=== PATIENT | female | born 2000 | race Caucasian/White ===

== ENCOUNTER 2023-01-23 22:07 | Emergency (ER) | payer OTHER ==
[2023-01-23 22:13] VITALS: RESP 16; TEMP 98.4
[2023-01-23] MEDS ORDERED: ACETAMINOPHEN TAB 500 MG TAB PO STA (22:39)
[2023-01-23] MEDS ORDERED: KETOROLAC 15 MG/ML 1 ML VIAL IM STA (22:39)
[2023-01-23] MEDS ORDERED: ACET/COD 300 MG/30 MG STARTER PACK 6 TAB BTL PO STA (22:57)
--- NOTE | 2023-01-23 22:57 | ED ---
General Adult HPI - General Chief complaint: Extremity Injury, Lower Stated complaint: Right leg injury Time Seen by Provider: 01/23/23 22:30 Source: patient, RN notes reviewed, old records reviewed Mode of arrival: wheelchair Limitations: no limitations - History of Present Illness Initial comments: Patient is a 22-year-old female presents emergency Department complaining of right ankle and leg pain. Patient is a cheerleader, and shorted a landing when she immediately felt something pop in her posterior right ankle. Unable to ambulate afterwards. Has difficulty with plantar flexion. Tingling sensation in her feet. No other injury. Presents for further evaluation this time over concern for Achilles injury. No significant past medical history. Is visiting for a competition with her college and is not from the area. Denies any head. Denies loss of consciousness. Is not on blood thinners. - Related Data Allergies Allergy/AdvReac Type Severity Reaction Status Date / Time No Known Allergies Allergy Verified 01/23/23 22:13 Review of Systems ROS Statement: Those systems with pertinent positive or pertinent negative responses have been documented in the HPI. Review of Systems: CONST: Denies fever EYES: Denies blurry vision ENT: Denies nasal congestion C/V: Denies Chest pain RESP: Denies shortness of breath GI: Denies abdominal pain : Denies dysuria SKIN: Denies rash. MSK: Endorses right posterior ankle pain. NEURO: Denies headache ROS Other: All systems not noted in ROS Statement are negative. Past Medical History Past Medical History: No Reported History Past Surgical History: No Surgical Hx Reported Past Psychological History: No Psychological Hx Reported Smoking Status: Never smoker Past Alcohol Use History: None Reported Past Drug Use History: None Reported General Exam - General Exam Comments Initial Comments: General: Appears in no acute distress. HEAD: Normal with no signs of head trauma. EYES: EOMI. ENT: Hearing grossly intact. RESPIRATORY: No respiratory distress. C/V: Regular rate and rhythm. ABD: Abdomen is nondistended. EXT: No obvious deformity. Tenderness to palpation over the posterior right ankle along the Achilles tendon. Gustafson's test positive. Poor plantar flexion. Intact dorsiflexion. Neurovascular intact. Peripheral pulses 2+ and intact throughout. No other obvious injury. No malleoli tenderness. No foot tenderness. No tib-fib tenderness. SKIN: No rashes or lesions observed on exposed skin. NEURO: Alert and oriented. Limitations: no limitations Course Vital Signs 01/23/23 01/23/23 22:10 23:24 Temperature 98.4 F Pulse Rate 75 60 Respiratory 16 16 Rate Blood Pressure 118/73 93/53 O2 Sat by Pulse 98 96 Oximetry Procedures - Orthopedic Splinting/Casting Injury #1 Side: right Lower Extremity Injury Location: short leg Lower Extremity Immobilizer: posterior splint Other Orthopedic Equipment: crutches Additional Comments: Neurovascularly intact following splinting Medical Decision Making - Medical Decision Making Was pt. sent in by a medical professional or institution (, PA, BUSINESS CONTINUITY MANAGEMENT DIRECTOR, urgent care, hospital, or [facility]...) When possible be specific @ -No Did you speak to anyone other than the patient for history (EMS, parent, family, police, friend...)? What history was obtained from this source @ -No Did you review nursing and triage notes (agree or disagree)? Why? @ -I reviewed and agree with nursing and triage notes Were old charts reviewed (outside hosp., previous admission, EMS record, old EKG, old radiological studies, urgent care reports/EKG's, [facility] records)? Report findings @ -No old charts were reviewed Differential Diagnosis (chest pain, altered mental status, abdominal pain women, abdominal pain men, vaginal bleeding, weakness, fever, dyspnea, syncope, headache, dizziness, GI bleed, back pain, seizure, CVA, palpatations, mental health, musculoskeletal)? @ -Achilles tendon injury, Achilles tendon strain, Achilles tendon rupture, ankle fracture EKG interpreted by me (3pts min.). @ -None done X-rays interpreted by me (1pt min.). @ -Right ankle x-ray negative for any obvious bony traumatic injury.Patient does have posterior distal tibial swelling in the area of the Achilles tendon suggestive of injury and rupture. Radiology does see a old avulsion fracture of the fibula as well. CT interpreted by me (1pt min.). @ -None done U/S interpreted by me (1pt. min.). @ -None done What testing was considered but not performed or refused? (CT, X-rays, U/S, labs)? Why? @ -Considered ultrasound imaging however we do not have the capabilities to perform due to soft tissue ultrasound diagnosing Achilles tendon rupture. What meds were considered but not given or refused? Why? @ -None Did you discuss the management of the patient with other professionals (professionals i.e. , PA, BUSINESS CONTINUITY MANAGEMENT DIRECTOR, lab, RT, psych nurse, social work coordinator, spray machine loader, teacher, driver license reviewing officer, case management coordinator)? Give summary @ -No Was smoking cessation discussed for >3mins.? @ -No Was critical care preformed (if so, how long)? @ -No Were there social determinants of health that impacted care today? How? (Homelessness, low income, unemployed, alcoholism, drug addiction, transportation, low edu. Level, literacy, decrease access to med. care, group home, rehab)? @ -No Was there de-escalation of care discussed even if they declined (Discuss DNR or withdrawal of care, Hospice)? DNR status @ -No What co-morbidities impacted this encounter? (DM, HTN, Smoking, COPD, CAD, Cancer, CVA, ARF, Chemo, Hep., AIDS, mental health diagnosis, sleep apnea, morbid obesity)? @ -None Was patient admitted / discharged? Hospital course, mention meds given and route, prescriptions, significant lab abnormalities, going to OR and other pertinent info. @ -Based on the patient's presentation and physical exam, I am concerned for Achilles tendon injury. We will obtain an ankle x-ray to evaluate for any obvious bony traumatic injury however with the concern for Achilles tendon ruptu re she will be placed in a splint in plantar flexion and given crutches with follow-up. She expressed understanding was in agreement this plan. She'll remain nonweightbearing. Patient tolerated splinting well. Neurovascularly intact afterwards. X-ray shows no obvious acute bony traumatic injury. There is soft tissue swelling in the area of the Achilles tendon suggestive of Achilles tendon rupture. We discussed her likely diagnosis of Achilles tendon rupture versus sprain. Strict return precautions discussed. Patient was in agreement this plan. She'll be given a starter pack of Tylenol 3. I instructed the patient to follow up with their PCP in the next 1-3 days. I provided contact information for follow up with orthopedics. I explained that the patient should return to the emergency department if they experience any worsening symptoms. Strict return precautions were discussed with the patient. The patient expressed understanding of these instructions. I answered all questions that the patient had. The patient was discharged home in fair condition with their prescriptions and follow up information. Undiagnosed new problem with uncertain prognosis? @ -No Drug Therapy requiring intensive monitoring for toxicity (Heparin, Nitro, Insulin, Cardizem)? @ -No Were any procedures done? @ -Splinting Diagnosis/symptom? @ -Right Achilles tendon injury Acute, or Chronic, or Acute on Chronic? @ -Acute Uncomplicated (without systemic symptoms) or Complicated (systemic symptoms)? @ -complicated Side effects of treatment? @ -No Exacerbation, Progression, or Severe Exacerbation? @ -No Poses a threat to life or bodily function? How? (Chest pain, [place], [place], pneumonia, PE, COPD, DKA, ARF, appy, cholecystitis, CVA, Diverticulitis, Homicidal, Suicidal, threat to staff... and all critical care pts) @ -No Disposition Clinical Impression: Achilles tendon injury Disposition: HOME SELF-CARE Condition: Fair Instructions (If sedation given, give patient instructions): Achilles Tendon Rupture (ED) Is patient prescribed a controlled substance at d/c from ED?: No Referrals: None,Stated [Primary Care Provider] - 1-2 days Alber Meyers MD [Medical Doctor] - 1-2 days Time of Disposition: 23:30
[2023-01-23 23:27] VITALS: BP 93/53; PULSE 60
--- NOTE | 2023-01-24 00:22 | XR ---
EXAM: XR Right Ankle Complete, 3 or More Views CLINICAL HISTORY: posterior ankle/foot/achilles pain TECHNIQUE: Frontal, lateral and oblique views of the right ankle. COMPARISON: No relevant prior studies available. FINDINGS: Bones/joints: Corticated appearing likely old avulsion fracture inferior aspect of the distal fibula. No acute fracture. No dislocation. Soft tissues: Small amount of soft tissue swelling posterior aspect of the distal tibia region of the Achilles tendon. IMPRESSION: Soft tissue swelling posterior aspect of the distal tibia in the region of the Achilles tendons possibly an injury. Recommend correlate of studies such as MRI if clinically indicated. Likely old avulsion fracture the distal fibula.
== END 2023-01-23 23:27 | disposition home or self-care (01) ==
LOC: EC 22:07
DX: S86.001A Unspecified injury of right Achilles tendon, initial encounter (principal); W18.30XA Fall on same level, unspecified, initial encounter; Y92.219 Unspecified school as the place of occurrence of the external cause; Y93.45 Activity, cheerleading
CPT/HCPCS: 73610; 29515; 99283; 96372; J1885